=== PATIENT | male | born 1960 | race Caucasian/White ===

== ENCOUNTER 2016-07-29 11:55 | Observation (INO) | payer OTHER ==
[~2016-07-29] VITALS: Ht 172.7 cm; Wt 84.7 kg
[~2016-07-29 11:55] MED LIST: ACETAMINOPHEN325 M1 PO; AMBIEN10 MG PO; AUGMENTIN875 MG PO; Ambien PO; Ascorbic Acid,Ester- PO; Aspirin E.C. PO; Ativan PO; BACTRIM,SEPT1 TABLET PO; CARVEDILOL12.5 MG PO; CARVEDILOL25 MG PO; CARVEDILOL6.25 MG PO; CELEBREX200 MG PO; CELEXA10 MG PO; CELEXA20 MG PO; CENTRUM SILV1 TABLE1 PO; CEPHALEXIN250 MG/5 M PO; CLINDAMYCIN HC300 MG PO; CLONAZEPAM0.5 MG PO; COLACE100 MG PO; COREG PO; COREG3.125 M1 PO; COUMADIN1 MG PO; COUMADIN2 MG PO; COUMADIN3 MG PO; Coreg PO; DESYREL100 MG PO; ENDOCET 5-3251 EACH PO; ENTRESTO 24 MG1 EACH PO; FLOMAX0.4 MG PO; FUROSEMIDE20 MG PO; GABAPENTIN100 MG PO; GABAPENTIN300 MG PO; GABAPENTIN400 MG PO; K-DUR20 MEQ PO; K-Dur PO; KEFLEX250 MG/5 M PO; KEFLEX500 MG PO; KEPPRA500 MG PO; LASIX20 MG PO; LASIX40 MG PO; LEVOTHYROXINE PO; LEVOTHYROXINE150 MCG PO; LEVOTHYROXINE175 MCG PO; LEXAPRO20 MG PO; LIBRIUM25 MG PO; LISINOPRIL10 MG PO; LISINOPRIL5 MG PO; LORAZEPAM; LOVENOX80 MG/0.8 SC; Lasix PO; MIRALAX17 GM PO; Magnesium PO; Motrin PO; NAPROSYN500 MG PO; NARCAN4 MG NS; NEURONTIN600 MG PO; NITROSTAT,NITR0.4 M1 SL; OMEPRAZOLE40 M1 PO; OPANA ER20 MG PO; OXYCODONE HCL10 MG PO; OXYCODONE HCL30 MG PO; OXYCODONE HCL5 MG PO; OXYCONTIN80 MG PO; Omega III EPA + DHA PO; OxyCODONE PO; OxyCONTIN PO; PEN-VEE K,VEET500 MG PO; PERCOCET 5/31 TABLET PO; PREDNISONE20 MG PO; PRILOSEC40 MG PO; Pravachol PO; Pyridoxine,Vitamin B PO; SPIRONOLACTONE25 MG PO; SYNTHROID150 MCG PO; SYNTHROID200 MCG PO; SYNTHROID25 MCG PO; THERAGRAN1 TABLET PO; TRAZODONE HCL150 MG PO; Theragran PO; Thiamine,Vitamin B1 PO; ULTRA-LIGHT RO1 EACH MC; Ultram PO; VITAMIN B-1100 MG PO; VITAMIN D1000 INTUN PO; WARFARIN SODIUM1 MG PO; XANAX0.5 MG PO; ZESTRIL,PRINIVI10 MG PO; ZESTRIL2.5 MG PO; Zestril,Prinivil PO; oxyCODONE PO
[2016-07-29 13:41] LABS: HEMATOCRIT 28.8 % (38.0-50.0); MCH 28.8 PG (29.0-34.0); MCHC 31.9 G/DL (30.0-36.0); MCV 90.3 FL (86-99); MEAN PLAT.VOLUME 8.8 uM^3 (9.0-12.4); PLATELET COUNT 331 K/uL (156-360); RBC DIS.WIDTH-CV 14.8 % (11.8-14.6); RBC DIS.WIDTH-SD 47.2 % (39-53); RED BLOOD COUNT 3.19 M/uL (4.00-5.50); WHITE BLOOD COUNT 2.9 K/uL (4.1-10.2)
[2016-07-29 13:47] LABS: CHLORIDE 108 mEq/L (99-109); POTASSIUM 3.6 mEq/L (3.7-5.4); PTT 46.9 (25-32); SODIUM 139 mEq/L (136-147)
[2016-07-29 13:48] LABS: GLUCOSE 92 mg/dL (70-99)
[2016-07-29 13:50] LABS: ANION GAP 9 MEQ/L (2-14)
[2016-07-29 13:52] LABS: GFR ESTIMATE (CALCULATED) > 59 mL/min/
[2016-07-29 13:53] LABS: UREA NITROGEN (BUN) 9 mg/dL (9-23)
[2016-07-29 13:54] LABS: PROTHROMBIN TIME 160.7 (9.2-11.2)
[2016-07-29 14:07] LABS: INTER. NORMALIZED RATIO 14.5
[2016-07-29 15:09] LABS: ADD MIUA? YES; BILIRUBIN NEGATIVE; BLOOD SMALL; GLUCOSE (STRIP) NEGATIVE; KETONES NEGATIVE; LEUKOCYTES TRACE; NITRITE NEGATIVE; PH, URINE 6.5 (5-8); PROTEIN (STRIP) NEGATIVE; SPECIFIC GRAVITY 1.008 (1.000-1.030); UROBILINOGEN 0.2 MG/DL (0.2-1.0)
[2016-07-29 15:10] LABS: COLOR LT YELLOW ((YELLOW))
[2016-07-29 15:25] LABS: BACTERIA NONE SEEN; CASTS NONE SEEN /LPF; CRYSTALS NONE SEEN; EPITHELIAL CELLS RARE; MUCUS NONE SEEN; PATHOLOGICAL CAST NONE SEEN; SMALL ROUND CELL NONE SEEN; UCUL ADDED? NO; WHITE BLOOD CELLS 0-5 /HPF (0-5); YEAST-LIKE CELL NONE SEEN
[2016-07-29 15:41] LABS: MAGNESIUM 1.1 mg/dL (1.3-2.7)
[2016-07-29] MEDS ORDERED: COUMADIN5 MG PO (16:27)
[2016-07-29] MEDS ORDERED: CENTRUM MEN'S1 EACH PO (16:30)
[2016-07-29 17:35] VITALS: BP 154/91
[2016-07-29] MEDS ORDERED: OPANA ER20 MG PO (18:00)
[2016-07-29 19:55] LABS: PROTHROMBIN TIME 144.9 (9.2-11.2)
[2016-07-29 20:00] VITALS: BP 122/75
[2016-07-29 20:15] VITALS: BP 127/76
[2016-07-29 20:17] LABS: INTER. NORMALIZED RATIO 13.1
[2016-07-29 21:52] VITALS: BP 122/75
[2016-07-29 22:00] VITALS: BP 127/76
[2016-07-29 23:53] VITALS: BP 141/84
[2016-07-30 00:38] VITALS: BP 141/91
[2016-07-30 01:30] VITALS: BP 148/67
[2016-07-30 04:16] VITALS: BP 144/71
[2016-07-30 07:09] LABS: HEMATOCRIT 30.3 % (38.0-50.0); MCH 28.5 PG (29.0-34.0); MCHC 31.4 G/DL (30.0-36.0); PLATELET COUNT 249 K/uL (156-360); RBC DIS.WIDTH-CV 15.3 % (11.8-14.6); RBC DIS.WIDTH-SD 50.5 % (39-53); RED BLOOD COUNT 3.33 M/uL (4.00-5.50); WHITE BLOOD COUNT 2.6 K/uL (4.1-10.2)
[2016-07-30 07:30] LABS: INTER. NORMALIZED RATIO 2.3; PROTHROMBIN TIME 23.7 (9.2-11.2)
[2016-07-30 07:55] LABS: ANION GAP 9 MEQ/L (2-14); CHLORIDE 105 MEQ/L (99-109); POTASSIUM 3.9 MEQ/L (3.7-5.4); SAMPLE HEMOLYSIS CHECK 0; SAMPLE ICTERIC CHECK 0; SAMPLE LIPEMIA CHECK 0; SODIUM 142 MEQ/L (136-147)
[2016-07-30 08:00] LABS: GFR ESTIMATE (CALCULATED) > 59 mL/min/; GLUCOSE 84 mg/dL (70-99); UREA NITROGEN (BUN) 13 mg/dL (9-23)
[2016-07-30 08:29] VITALS: BP 129/76
[2016-07-30] MEDS ORDERED: COUMADIN1 MG PO ×2 (11:44→15:28)
[2016-07-30 13:01] VITALS: BP 121/68
== END 2016-07-30 12:30 | disposition home or self-care (01) ==
LOC: EME → EDBD 11:55 → EDOF 14:35 → 5WEST 14:35
PROVIDERS: Emergency Medicine; Nurse Practitioner Adult Health
DX: R79.1 Abnormal coagulation profile (principal); I82.532 Chronic embolism and thrombosis of left popliteal vein; I82.592 Chronic embolism and thrombosis of other specified deep vein of left lower extremity; Z79.01 Long term (current) use of anticoagulants; F10.20 Alcohol dependence, uncomplicated; I50.20 Unspecified systolic (congestive) heart failure; Z95.810 Presence of automatic (implantable) cardiac defibrillator; I25.10 Atherosclerotic heart disease of native coronary artery without angina pectoris; I42.9 Cardiomyopathy, unspecified; E03.9 Hypothyroidism, unspecified; E78.5 Hyperlipidemia, unspecified; Z86.711 Personal history of pulmonary embolism; Z87.898 Personal history of other specified conditions; Z86.69 Personal history of other diseases of the nervous system and sense organs; Z95.828 Presence of other vascular implants and grafts
CPT/HCPCS: 80048; 81003; 83735; 85027; 85610; 85730; 86850; 86900; 86901; 93971; 99281; 99284; G0378; P9017

== ENCOUNTER 2016-10-29 10:32 | Inpatient (IN) | payer OTHER ==
[~2016-10-29] VITALS: Ht 170.2 cm; Wt 90.1 kg
[~2016-10-29 10:32] MED LIST changes: +CENTRUM MEN'S1 EACH PO; +COUMADIN5 MG PO
[2016-10-29 11:36] LABS: EOSINOPHIL (%) 0 % (0-5); HEMATOCRIT 40.1 % (38.0-50.0); IMMATURE GRANULOCYTE (%) 0.6 % (0.0-0.7); INSTRUMENT ABS NEUTROPHIL CT 3.3 K/uL; LYMPHOCYTE COUNT 1.3 K/uL (1.0-2.8); MCH 27.9 PG (29.0-34.0); MCHC 32.7 G/DL (30.0-36.0); MCV 85.3 FL (86-99); MEAN PLAT.VOLUME 9.2 uM^3 (9.0-12.4); MONOCYTE (%) 8.1 % (3-12); MONOCYTE COUNT 0.4 K/uL (0-0.8); NEUTROPHIL (%) 64.7 % (45-76); NEUTROPHIL COUNT 3.3 K/uL (1.8-6.4); PLATELET COUNT 183 K/uL (156-360); RBC DIS.WIDTH-CV 16.7 % (11.8-14.6); RBC DIS.WIDTH-SD 51.3 % (39-53); WHITE BLOOD COUNT 5.1 K/uL (4.1-10.2)
[2016-10-29] MEDS ORDERED: OPANA ER15 MG PO (11:48)
[2016-10-29] MEDS ORDERED: OXYCODONE HCL10 MG PO (11:49)
[2016-10-29 11:50] LABS: CHLORIDE 105 mEq/L (99-109); POTASSIUM 3.3 mEq/L (3.7-5.4); SODIUM 139 mEq/L (136-147)
[2016-10-29] MEDS ORDERED: XARELTO20 MG PO (11:50)
[2016-10-29] MEDS ORDERED: AMBIEN5 MG PO (11:50)
[2016-10-29] MEDS ORDERED: FUROSEMIDE20 MG PO (11:50)
[2016-10-29 11:51] LABS: GLUCOSE 139 mg/dL (70-99)
[2016-10-29 11:53] LABS: ANION GAP 11 MEQ/L (2-14)
[2016-10-29 11:55] LABS: GFR ESTIMATE (CALCULATED) > 59 mL/min/
[2016-10-29 11:56] LABS: UREA NITROGEN (BUN) 10 mg/dL (9-23)
[2016-10-29 18:34] VITALS: BP 167/101
[2016-10-29 20:05] VITALS: BP 138/88
[2016-10-29 22:43] VITALS: BP 119/83
[2016-10-30 03:44] VITALS: BP 129/84
[2016-10-30 06:44] LABS: EOSINOPHIL (%) 0 % (0-5); HEMATOCRIT 37.5 % (38.0-50.0); IMMATURE GRANULOCYTE (%) 0.6 % (0.0-0.7); INSTRUMENT ABS NEUTROPHIL CT 1.8 K/uL; LYMPHOCYTE COUNT 1.4 K/uL (1.0-2.8); MCH 28.1 PG (29.0-34.0); MCHC 32.3 G/DL (30.0-36.0); MCV 87.2 FL (86-99); MEAN PLAT.VOLUME 8.9 uM^3 (9.0-12.4); MONOCYTE (%) 9.8 % (3-12); MONOCYTE COUNT 0.4 K/uL (0-0.8); NEUTROPHIL (%) 50.9 % (45-76); NEUTROPHIL COUNT 1.8 K/uL (1.8-6.4); PLATELET COUNT 157 K/uL (156-360); RBC DIS.WIDTH-SD 53.4 % (39-53); WHITE BLOOD COUNT 3.6 K/uL (4.1-10.2)
[2016-10-30 06:55] VITALS: BP 136/87
[2016-10-30 07:10] LABS: ANION GAP 10 MEQ/L (2-14); CHLORIDE 103 MEQ/L (99-109); GFR ESTIMATE (CALCULATED) > 59 mL/min/; GLUCOSE 88 mg/dL (70-99); POTASSIUM 3.6 MEQ/L (3.7-5.4); SAMPLE HEMOLYSIS CHECK 0; SAMPLE ICTERIC CHECK 0; SAMPLE LIPEMIA CHECK 0; SODIUM 141 MEQ/L (136-147); UREA NITROGEN (BUN) 10 mg/dL (9-23)
[2016-10-30 08:26] LABS: C-REACTIVE PROTEIN 8.2 MG/L (0-10)
[2016-10-30 16:02] VITALS: BP 129/94
[2016-10-30 19:03] VITALS: BP 112/79
[2016-10-30 23:03] VITALS: BP 114/75
[2016-10-31 03:16] VITALS: BP 124/93
[2016-10-31 06:34] LABS: EOSINOPHIL (%) 0 % (0-5); HEMATOCRIT 38.3 % (38.0-50.0); IMMATURE GRANULOCYTE (%) 0.5 % (0.0-0.7); INSTRUMENT ABS NEUTROPHIL CT 2.2 K/uL; LYMPHOCYTE COUNT 1.7 K/uL (1.0-2.8); MCHC 31.9 G/DL (30.0-36.0); MCV 87.8 FL (86-99); MONOCYTE (%) 8.8 % (3-12); MONOCYTE COUNT 0.4 K/uL (0-0.8); NEUTROPHIL (%) 50.7 % (45-76); NEUTROPHIL COUNT 2.2 K/uL (1.8-6.4); PLATELET COUNT 179 K/uL (156-360); RBC DIS.WIDTH-CV 17.4 % (11.8-14.6); RBC DIS.WIDTH-SD 54.6 % (39-53); RED BLOOD COUNT 4.36 M/uL (4.00-5.50); WHITE BLOOD COUNT 4.3 K/uL (4.1-10.2)
[2016-10-31 07:07] LABS: ANION GAP 9 MEQ/L (2-14); CHLORIDE 101 MEQ/L (99-109); GFR ESTIMATE (CALCULATED) > 59 mL/min/; GLUCOSE 95 mg/dL (70-99); POTASSIUM 3.7 MEQ/L (3.7-5.4); SAMPLE HEMOLYSIS CHECK 0; SAMPLE ICTERIC CHECK 0; SAMPLE LIPEMIA CHECK 0; SODIUM 138 MEQ/L (136-147); UREA NITROGEN (BUN) 9 mg/dL (9-23)
[2016-10-31 07:09] VITALS: BP 135/83
[2016-10-31 07:11] LABS: MAGNESIUM 0.7 mg/dl (1.3-2.7)
[2016-10-31 10:10] VITALS: BP 112/75
[2016-10-31 15:28] VITALS: BP 135/70
[2016-10-31 18:55] VITALS: BP 119/77
[2016-10-31 23:00] VITALS: BP 123/76
[2016-11-01 04:46] VITALS: BP 121/78
[2016-11-01 06:52] LABS: EOSINOPHIL (%) 0.3 % (0-5); HEMATOCRIT 36.9 % (38.0-50.0); IMMATURE GRANULOCYTE (%) 0.3 % (0.0-0.7); LYMPHOCYTE COUNT 1.6 K/uL (1.0-2.8); MCH 28.1 PG (29.0-34.0); MCHC 30.9 G/DL (30.0-36.0); MCV 91.1 FL (86-99); MEAN PLAT.VOLUME 9.6 uM^3 (9.0-12.4); MONOCYTE (%) 9.9 % (3-12); MONOCYTE COUNT 0.4 K/uL (0-0.8); NEUTROPHIL (%) 49.4 % (45-76); PLATELET COUNT 172 K/uL (156-360); RBC DIS.WIDTH-CV 17.8 % (11.8-14.6); RBC DIS.WIDTH-SD 58.6 % (39-53); RED BLOOD COUNT 4.05 M/uL (4.00-5.50); WHITE BLOOD COUNT 3.9 K/uL (4.1-10.2)
[2016-11-01 07:22] LABS: ANION GAP 8 MEQ/L (2-14); CHLORIDE 107 MEQ/L (99-109); GFR ESTIMATE (CALCULATED) > 59 mL/min/; GLUCOSE 83 mg/dL (70-99); SAMPLE HEMOLYSIS CHECK 0; SAMPLE ICTERIC CHECK 0; SAMPLE LIPEMIA CHECK 0; SODIUM 139 MEQ/L (136-147); UREA NITROGEN (BUN) 10 mg/dL (9-23)
[2016-11-01 07:31] VITALS: BP 137/85
[2016-11-01 07:35] LABS: MAGNESIUM 1.6 mg/dl (1.3-2.7); POTASSIUM 4.5 MEQ/L (3.7-5.4)
[2016-11-01 11:40] VITALS: BP 117/79
[2016-11-01 16:00] VITALS: BP 134/91
[2016-11-01 19:06] VITALS: BP 130/84
[2016-11-01 22:35] VITALS: BP 121/75
[2016-11-02 06:38] LABS: EOSINOPHIL (%) 0 % (0-5); HEMATOCRIT 35.1 % (38.0-50.0); IMMATURE GRANULOCYTE (%) 0.4 % (0.0-0.7); LYMPHOCYTE COUNT 1.3 K/uL (1.0-2.8); MCHC 31.1 G/DL (30.0-36.0); MCV 90.2 FL (86-99); MEAN PLAT.VOLUME 9.3 uM^3 (9.0-12.4); MONOCYTE (%) 13.4 % (3-12); MONOCYTE COUNT 0.4 K/uL (0-0.8); NEUTROPHIL (%) 37.5 % (45-76); PLATELET COUNT 174 K/uL (156-360); RBC DIS.WIDTH-CV 17.4 % (11.8-14.6); RBC DIS.WIDTH-SD 56.8 % (39-53); RED BLOOD COUNT 3.89 M/uL (4.00-5.50)
[2016-11-02 06:41] LABS: WHITE BLOOD COUNT 2.6 K/uL (4.1-10.2)
[2016-11-02 06:48] LABS: ANION GAP 8 MEQ/L (2-14); CHLORIDE 104 MEQ/L (99-109); GFR ESTIMATE (CALCULATED) > 59 mL/min/; GLUCOSE 89 mg/dL (70-99); MAGNESIUM 1.6 mg/dl (1.3-2.7); POTASSIUM 4.3 MEQ/L (3.7-5.4); SAMPLE HEMOLYSIS CHECK 0; SAMPLE ICTERIC CHECK 0; SAMPLE LIPEMIA CHECK 0; SODIUM 139 MEQ/L (136-147); UREA NITROGEN (BUN) 9 mg/dL (9-23)
[2016-11-02 07:34] VITALS: BP 114/78
[2016-11-02 11:15] VITALS: BP 115/81
[2016-11-02] MEDS ORDERED: BACTRIM,SEPT1 TABLET PO (14:04)
[2016-11-02] MEDS ORDERED: KEFLEX500 MG PO (14:05)
[2016-11-02 15:26] VITALS: BP 126/70
== END 2016-11-02 17:06 | disposition home or self-care (01) | DRG 603 ==
LOC: EME 10:32 → EDOF 13:57 → 5EAST 13:57
PROVIDERS: Internal Medicine; Nurse Practitioner Adult Health; Physician Assistant
DX: L03.116 Cellulitis of left lower limb (principal); I42.9 Cardiomyopathy, unspecified; G62.1 Alcoholic polyneuropathy; I48.91 Unspecified atrial fibrillation; F32.9 Major depressive disorder, single episode, unspecified; I10 Essential (primary) hypertension; E83.42 Hypomagnesemia; F41.9 Anxiety disorder, unspecified; F10.20 Alcohol dependence, uncomplicated; E03.9 Hypothyroidism, unspecified; E78.5 Hyperlipidemia, unspecified; F19.10 Other psychoactive substance abuse, uncomplicated; L97.522 Non-pressure chronic ulcer of other part of left foot with fat layer exposed; Z86.711 Personal history of pulmonary embolism; Z95.810 Presence of automatic (implantable) cardiac defibrillator
CPT/HCPCS: 73630; 73701; 80048; 80202; 83605; 83735; 85025; 85651; 86140; 87040; 87070; 87075; 87205; 93926; 93971; 99281; 99285; J0690; J1170; J2270; J2543; J3370; J3475; J7050

== ENCOUNTER 2016-12-13 12:50 | Inpatient (IN) | payer OTHER ==
[~2016-12-13] VITALS: Ht 172.7 cm; Wt 89.9 kg
[~2016-12-13 12:50] MED LIST changes: +AMBIEN5 MG PO; +OPANA ER15 MG PO; +XARELTO20 MG PO
[2016-12-13 13:49] LABS: EOSINOPHIL (%) 0.3 % (0-5); HEMATOCRIT 35.3 % (38.0-50.0); IMMATURE GRANULOCYTE (%) 0.4 % (0.0-0.7); INSTRUMENT ABS NEUTROPHIL CT 5.3 K/uL; LYMPHOCYTE COUNT 0.8 K/uL (1.0-2.8); MCH 28.9 PG (29.0-34.0); MCV 90.3 FL (86-99); MEAN PLAT.VOLUME 9.1 uM^3 (9.0-12.4); MONOCYTE COUNT 0.6 K/uL (0-0.8); NEUTROPHIL (%) 77.9 % (45-76); NEUTROPHIL COUNT 5.3 K/uL (1.8-6.4); RBC DIS.WIDTH-CV 15.4 % (11.8-14.6); RBC DIS.WIDTH-SD 51.4 % (39-53); RED BLOOD COUNT 3.91 M/uL (4.00-5.50)
[2016-12-13 13:51] LABS: PLATELET COUNT 151 K/uL (156-360); WHITE BLOOD COUNT 6.8 K/uL (4.1-10.2)
[2016-12-13 14:01] LABS: INTER. NORMALIZED RATIO 2.3; PROTHROMBIN TIME 23.8 (9.2-11.2); PTT 37.3 (25-32)
[2016-12-13 14:10] LABS: TROP-I INTERPRETATION NEGATIVE; TROPONIN-I 0.03 ng/mL (0.0-0.30)
[2016-12-13 14:10] LABS: POINT-OF-CARE METER ID UU13113702
[2016-12-13 14:18] LABS: CHLORIDE 100 mEq/L (99-109); POTASSIUM 3.9 mEq/L (3.7-5.4); SODIUM 136 mEq/L (136-147)
[2016-12-13 14:19] LABS: GLUCOSE 112 mg/dL (70-99)
[2016-12-13 14:21] LABS: ANION GAP 14 MEQ/L (2-14)
[2016-12-13 14:23] LABS: GFR ESTIMATE (CALCULATED) 26 mL/min/
[2016-12-13 14:24] LABS: UREA NITROGEN (BUN) 24 mg/dL (9-23)
[2016-12-13 16:50] LABS: ADD MIUA? YES; BILIRUBIN NEGATIVE; BLOOD LARGE; COLOR YELLOW ((YELLOW)); GLUCOSE (STRIP) 50; KETONES NEGATIVE; LEUKOCYTES NEGATIVE; NITRITE NEGATIVE; PROTEIN (STRIP) 100; SPECIFIC GRAVITY 1.023 (1.000-1.030); UROBILINOGEN 0.2 MG/DL (0.2-1.0)
[2016-12-13 16:53] LABS: BACTERIA NONE SEEN /HPF; EPITHELIAL CELLS NONE SEEN /HPF; MUCUS TRACE /LPF; RED BLOOD CELLS 0-5 /HPF (0-5); WHITE BLOOD CELLS 0-5 /HPF (0-5)
[2016-12-13] MEDS ORDERED: SYNTHROID25 MCG PO (16:56)
[2016-12-13] MEDS ORDERED: OPANA ER20 MG PO (16:57)
[2016-12-13] MEDS ORDERED: OXYCODONE HCL20 M1 PO (16:57)
[2016-12-13] MEDS ORDERED: AMBIEN10 MG PO (16:58)
[2016-12-13] MEDS ORDERED: EFFEXOR75 MG PO (17:00)
[2016-12-13] MEDS ORDERED: ROXICODONE15 MG PO (17:01)
[2016-12-13] MEDS ORDERED: ALDACTONE25 MG PO (17:02)
[2016-12-13 17:12] LABS: AMPHETAMINE NEGATIVE (500 ng/mL); BARBITURATES NEGATIVE (200 ng/mL); BENZODIAZEPINES NEGATIVE (150 ng/mL); COCAINE NEGATIVE (150 ng/mL); INTERNAL CONTROLS VALID? YES; METHADONE NEGATIVE (200 ng/mL); METHAMPHETAMINE NEGATIVE (500 ng/mL); OPIATES (MORPHINE) PRESUMPTIVE POSITIVE (100 ng/mL); OXYCODONE PRESUMPTIVE POSITIVE (100 ng/mL); PHENCYCLIDINE NEGATIVE (25 ng/mL); PROPOXYPHENE NEGATIVE (300 ng/mL); THC CANNABINOIDS NEGATIVE (50 ng/mL); TRICYCLIC ANTIDEPRESSANTS NEGATIVE (300 ng/mL)
[2016-12-13 17:13] LABS: ADD MEDTOX COMMENT Y
[2016-12-13 20:09] LABS: MAGNESIUM 1.5 mg/dL (1.3-2.7)
[2016-12-13 20:13] LABS: SERUM ETHYL ALCOHOL < 10 mg/dL
[2016-12-13 20:38] LABS: TROP-I INTERPRETATION NEGATIVE; TROPONIN-I 0.03 ng/mL (0.0-0.30)
[2016-12-13 21:08] VITALS: BP 117/72
[2016-12-14 00:02] VITALS: BP 97/56
[2016-12-14 06:42] LABS: HEMATOCRIT 31.8 % (38.0-50.0); MCH 30.1 PG (29.0-34.0); MCHC 32.7 G/DL (30.0-36.0); MCV 92.2 FL (86-99); MEAN PLAT.VOLUME 9.5 uM^3 (9.0-12.4); PLATELET COUNT 126 K/uL (156-360); RBC DIS.WIDTH-CV 15.4 % (11.8-14.6); RBC DIS.WIDTH-SD 51.6 % (39-53); RED BLOOD COUNT 3.45 M/uL (4.00-5.50)
[2016-12-14 06:45] LABS: WHITE BLOOD COUNT 4.2 K/uL (4.1-10.2)
[2016-12-14 07:54] LABS: ANION GAP 7 MEQ/L (2-14); CHLORIDE 102 MEQ/L (99-109); GFR ESTIMATE (CALCULATED) 51 mL/min/; GLUCOSE 128 mg/dL (70-99); POTASSIUM 3.6 MEQ/L (3.7-5.4); SAMPLE HEMOLYSIS CHECK 0; SAMPLE ICTERIC CHECK 0; SAMPLE LIPEMIA CHECK 0; SODIUM 137 MEQ/L (136-147); UREA NITROGEN (BUN) 22 mg/dL (9-23)
[2016-12-14 08:02] VITALS: BP 123/68
[2016-12-14 15:57] VITALS: BP 114/80
[2016-12-14 22:08] LABS: TROP-I INTERPRETATION NEGATIVE; TROPONIN-I 0.01 ng/mL (0.0-0.30)
[2016-12-15] VITALS: BP 110/75
[2016-12-15 07:24] VITALS: BP 123/66
[2016-12-15 09:10] LABS: ANION GAP 11 MEQ/L (2-14); CHLORIDE 98 MEQ/L (99-109); GFR ESTIMATE (CALCULATED) > 59 mL/min/; GLUCOSE 108 mg/dL (70-99); MAGNESIUM 1.3 mg/dl (1.3-2.7); SAMPLE HEMOLYSIS CHECK 0; SAMPLE ICTERIC CHECK 0; SAMPLE LIPEMIA CHECK 0; SODIUM 134 MEQ/L (136-147); UREA NITROGEN (BUN) 22 mg/dL (9-23)
[2016-12-15] MEDS ORDERED: LEVOXYL200 MCG PO (09:18)
[2016-12-15] MEDS ORDERED: LEVO-T25 MCG PO (09:19)
[2016-12-15] MEDS ORDERED: DOXYCYCLINE HY100 M3 PO (13:11)
== END 2016-12-15 13:42 | disposition home or self-care (01) | DRG 638 ==
LOC: EME 12:50 → EDOF 18:27 → 5SOUTH 18:27
PROVIDERS: Emergency Medicine; Hospitalist; Internal Medicine
DX: E11.69 Type 2 diabetes mellitus with other specified complication (principal); N17.9 Acute kidney failure, unspecified; I95.89 Other hypotension; I42.0 Dilated cardiomyopathy; E11.621 Type 2 diabetes mellitus with foot ulcer; E87.1 Hypo-osmolality and hyponatremia; I11.0 Hypertensive heart disease with heart failure; I50.22 Chronic systolic (congestive) heart failure; I10 Essential (primary) hypertension; I48.0 Paroxysmal atrial fibrillation; E86.0 Dehydration; R07.89 Other chest pain; L03.032 Cellulitis of left toe; L97.524 Non-pressure chronic ulcer of other part of left foot with necrosis of bone; Z86.711 Personal history of pulmonary embolism; Z86.718 Personal history of other venous thrombosis and embolism; E03.9 Hypothyroidism, unspecified; L03.116 Cellulitis of left lower limb; F19.10 Other psychoactive substance abuse, uncomplicated; I25.10 Atherosclerotic heart disease of native coronary artery without angina pectoris; R00.0 Tachycardia, unspecified; G89.4 Chronic pain syndrome; Z95.810 Presence of automatic (implantable) cardiac defibrillator; Z95.5 Presence of coronary angioplasty implant and graft; R42 Dizziness and giddiness; I44.7 Left bundle-branch block, unspecified; M19.90 Unspecified osteoarthritis, unspecified site; E87.6 Hypokalemia; T50.2X5A Adverse effect of carbonic-anhydrase inhibitors, benzothiadiazides and other diuretics, initial encounter; F41.9 Anxiety disorder, unspecified; F32.9 Major depressive disorder, single episode, unspecified; Z95.828 Presence of other vascular implants and grafts; Z91.14 Patient's other noncompliance with medication regimen
CPT/HCPCS: 71010; 71250; 73700; 80048; 81003; 82948; 83735; 83880; 84484; 84999; 85025; 85027; 85610; 85730; 87070; 87075; 87077; 87147; 87186; 87205; 93005; 93970; 94799; 99281; 99285; G0480; J2310; J7030; J7040

== ENCOUNTER 2016-12-17 12:54 | Emergency (ER) | payer OTHER ==
[~2016-12-17 12:54] MED LIST changes: +ALDACTONE25 MG PO; +DOXYCYCLINE HY100 M3 PO; +EFFEXOR75 MG PO; +LEVO-T25 MCG PO; +LEVOXYL200 MCG PO; +OXYCODONE HCL20 M1 PO; +ROXICODONE15 MG PO
== END 2016-12-17 13:11 | disposition left against medical advice (07) ==
LOC: EME 12:54
DX: F19.10 Other psychoactive substance abuse, uncomplicated (principal); R41.82 Altered mental status, unspecified
CPT/HCPCS: 99281; 99283

== ENCOUNTER → 2016-12-20 | Outpatient (CLI) | payer OTHER | END | disposition home or self-care (01) | LOC: PICC 12-17 07:51 | DX: M86.072 Acute hematogenous osteomyelitis, left ankle and foot (principal); L97.523 Non-pressure chronic ulcer of other part of left foot with necrosis of muscle; Z88.8 Allergy status to other drugs, medicaments and biological substances | CPT/HCPCS: 76937 ==

== ENCOUNTER 2017-02-26 20:11 | Emergency (ER) | payer OTHER ==
[~2017-02-26] VITALS: Ht 172.7 cm; Wt 90.2 kg
[2017-02-26 20:19] VITALS: BP 123/83
== END 2017-02-26 20:22 | disposition left against medical advice (07) ==
LOC: EME → EDBD 20:11 → EME 20:11
DX: R41.82 Altered mental status, unspecified (principal); Z53.21 Procedure and treatment not carried out due to patient leaving prior to being seen by health care provider
CPT/HCPCS: 80048; 84484; 85027; 93005; J2310

== ENCOUNTER 2017-03-31 16:19 | Emergency (ER) | payer OTHER ==
[~2017-03-31] VITALS: Ht 165.1 cm; Wt 91.3 kg
[2017-03-31 18:39] VITALS: BP 141/89
== END 2017-03-31 19:52 | disposition home or self-care (01) ==
LOC: EME 16:19
DX: F10.129 Alcohol abuse with intoxication, unspecified (principal); S00.81XA Abrasion of other part of head, initial encounter; W18.30XA Fall on same level, unspecified, initial encounter; I44.7 Left bundle-branch block, unspecified; E03.9 Hypothyroidism, unspecified; I12.9 Hypertensive chronic kidney disease with stage 1 through stage 4 chronic kidney disease, or unspecified chronic kidney disease; N18.9 Chronic kidney disease, unspecified; Z95.0 Presence of cardiac pacemaker; Z79.01 Long term (current) use of anticoagulants; Z79.891 Long term (current) use of opiate analgesic
CPT/HCPCS: 70450; 93005; 99281; 99283

== ENCOUNTER 2017-04-01 12:53 | Emergency (ER) | payer OTHER ==
[~2017-04-01] VITALS: Ht 172.7 cm; Wt 79.5 kg
[2017-04-01 15:44] LABS: EOSINOPHIL (%) 0.8 % (0-5); HEMATOCRIT 42.2 % (38.0-50.0); IMMATURE GRANULOCYTE (%) 0.3 % (0.0-0.7); LYMPHOCYTE COUNT 1.3 K/uL (1.0-2.8); MCH 27.1 PG (29.0-34.0); MCHC 32.9 G/DL (30.0-36.0); MCV 82.3 FL (86-99); MEAN PLAT.VOLUME 9.5 uM^3 (9.0-12.4); MONOCYTE COUNT 0.3 K/uL (0-0.8); NEUTROPHIL (%) 54.4 % (45-76); PLATELET COUNT 207 K/uL (156-360); RBC DIS.WIDTH-CV 17.5 % (11.8-14.6); RBC DIS.WIDTH-SD 51.9 % (39-53); RED BLOOD COUNT 5.13 M/uL (4.00-5.50); WHITE BLOOD COUNT 3.6 K/uL (4.1-10.2)
[2017-04-01 15:50] LABS: CHLORIDE 108 mEq/L (99-109); POTASSIUM 2.9 mEq/L (3.7-5.4); SODIUM 146 mEq/L (136-147)
[2017-04-01 15:52] LABS: GLUCOSE 84 mg/dL (70-99)
[2017-04-01 15:54] LABS: ANION GAP 19 MEQ/L (2-14)
[2017-04-01 15:55] LABS: SERUM ETHYL ALCOHOL 171 mg/dL
[2017-04-01 15:56] LABS: GFR ESTIMATE (CALCULATED) > 59 mL/min/
[2017-04-01 15:58] LABS: UREA NITROGEN (BUN) 10 mg/dL (9-23)
[2017-04-01 15:59] LABS: SALICYLATE < 5.0 MG/DL (15-30)
[2017-04-01 19:54] VITALS: BP 112/82
== END 2017-04-01 19:58 | disposition home or self-care (01) ==
LOC: EME 12:53
PROVIDERS: Emergency Medicine
PROC: 0XQ4XZZ Repair Right Axilla, External Approach (ICD-10-PCS; principal; 2017-04-01)
DX: S41.111A Laceration without foreign body of right upper arm, initial encounter (principal); F10.24 Alcohol dependence with alcohol-induced mood disorder; F32.9 Major depressive disorder, single episode, unspecified; R45.851 Suicidal ideations; I10 Essential (primary) hypertension; Z87.442 Personal history of urinary calculi; I25.10 Atherosclerotic heart disease of native coronary artery without angina pectoris; E03.9 Hypothyroidism, unspecified; I48.91 Unspecified atrial fibrillation; Z96.612 Presence of left artificial shoulder joint; Z95.0 Presence of cardiac pacemaker
CPT/HCPCS: 80048; 85025; 90839; 99281; 99285; G0480; J1630; J2060

== ENCOUNTER 2017-04-21 13:42 | Emergency (ER) | payer OTHER ==
[~2017-04-21] VITALS: Ht 167.6 cm; Wt 87.3 kg
[2017-04-21 15:20] LABS: HEMATOCRIT 38.2 % (38.0-50.0); MCH 27.2 PG (29.0-34.0); MCHC 31.9 G/DL (30.0-36.0); MCV 85.1 FL (86-99); MEAN PLAT.VOLUME 9.4 uM^3 (9.0-12.4); PLATELET COUNT 247 K/uL (156-360); RBC DIS.WIDTH-CV 18.6 % (11.8-14.6); RBC DIS.WIDTH-SD 58.3 % (39-53); RED BLOOD COUNT 4.49 M/uL (4.00-5.50); WHITE BLOOD COUNT 2.4 K/uL (4.1-10.2)
[2017-04-21 15:25] LABS: INTER. NORMALIZED RATIO 1.5
[2017-04-21 15:28] LABS: CHLORIDE 107 mEq/L (99-109); POTASSIUM 3.8 mEq/L (3.7-5.4); SODIUM 141 mEq/L (136-147)
[2017-04-21 15:30] LABS: GLUCOSE 79 mg/dL (70-99)
[2017-04-21 15:31] LABS: ANION GAP 9 MEQ/L (2-14)
[2017-04-21 15:32] LABS: TOTAL BILIRUBIN 0.5 mg/dL (0.0-1.0)
[2017-04-21 15:33] LABS: SERUM ETHYL ALCOHOL 86 mg/dL
[2017-04-21 15:34] LABS: ALKALINE PHOSPHATASE 74 IU/L (3-129); GFR ESTIMATE (CALCULATED) > 59 mL/min/
[2017-04-21 15:35] LABS: UREA NITROGEN (BUN) 9 mg/dL (9-23)
[2017-04-21 15:44] LABS: ADD MIUA? NO; BILIRUBIN NEGATIVE; BLOOD NEGATIVE; COLOR YELLOW ((YELLOW)); GLUCOSE (STRIP) NEGATIVE; KETONES NEGATIVE; LEUKOCYTES NEGATIVE; NITRITE NEGATIVE; PROTEIN (STRIP) NEGATIVE; SPECIFIC GRAVITY 1.013 (1.000-1.030); UROBILINOGEN 0.2 MG/DL (0.2-1.0)
[2017-04-21 16:16] LABS: AMPHETAMINE NEGATIVE (500 ng/mL); BARBITURATES NEGATIVE (200 ng/mL); BENZODIAZEPINES PRESUMPTIVE POSITIVE (150 ng/mL); COCAINE PRESUMPTIVE POSITIVE (150 ng/mL); METHADONE NEGATIVE (200 ng/mL); METHAMPHETAMINE NEGATIVE (500 ng/mL); OPIATES (MORPHINE) PRESUMPTIVE POSITIVE (100 ng/mL); OXYCODONE NEGATIVE (100 ng/mL); PHENCYCLIDINE NEGATIVE (25 ng/mL); PROPOXYPHENE NEGATIVE (300 ng/mL); THC CANNABINOIDS NEGATIVE (50 ng/mL); TRICYCLIC ANTIDEPRESSANTS NEGATIVE (300 ng/mL)
[2017-04-21 16:17] LABS: ADD MEDTOX COMMENT Y; INTERNAL CONTROLS VALID? YES
[2017-04-21 16:36] LABS: BENZODIAZEPINES, URINE SCREEN POSITIVE (200 ng/mL)
[2017-04-21] MEDS ORDERED: NARCAN4 MG NS (16:37)
[2017-04-21 16:51] VITALS: BP 137/82
== END 2017-04-21 17:01 | disposition home or self-care (01) ==
LOC: EME 13:42
PROVIDERS: Emergency Medicine
DX: F11.20 Opioid dependence, uncomplicated (principal); F14.20 Cocaine dependence, uncomplicated; F13.20 Sedative, hypnotic or anxiolytic dependence, uncomplicated; F10.10 Alcohol abuse, uncomplicated; F10.24 Alcohol dependence with alcohol-induced mood disorder; R41.0 Disorientation, unspecified; I10 Essential (primary) hypertension; R56.9 Unspecified convulsions; I25.10 Atherosclerotic heart disease of native coronary artery without angina pectoris; E03.9 Hypothyroidism, unspecified; Z95.0 Presence of cardiac pacemaker; Z87.820 Personal history of traumatic brain injury; Z96.612 Presence of left artificial shoulder joint; Z88.8 Allergy status to other drugs, medicaments and biological substances; Z87.442 Personal history of urinary calculi; Z86.73 Personal history of transient ischemic attack (TIA), and cerebral infarction without residual deficits
CPT/HCPCS: 70450; 80053; 81003; 82140; 84999; 85027; 85610; 90839; 99281; 99285; G0480; J7030

== ENCOUNTER 2017-05-04 20:37 | Inpatient (IN) | payer OTHER ==
[~2017-05-04] VITALS: Ht 172.7 cm; Wt 90.6 kg
[2017-05-04 20:55] LABS: BASE EXCESS -7.6 mEq/L (-3 to +3); CARBOXY HGB 1.6 % (0-5); COMMENTS - BLOOD GASES C+; DEVICE NRB MASK; FI02 100 %; METHEMOGLOBIN 0 % (0-1.5); O2 FLOW 15 L/MIN; PCO2 55 mm Hg (35-45); PO2 52 mm Hg (80-100); SITE RR; pH 7.19 (7.35-7.45)
[2017-05-04 21:32] LABS: HEMATOCRIT 38.5 % (38.0-50.0); MCH 27.7 PG (29.0-34.0); MCHC 31.7 G/DL (30.0-36.0); MCV 87.5 FL (86-99); MEAN PLAT.VOLUME 9.8 uM^3 (9.0-12.4); PLATELET COUNT 207 K/uL (156-360); RBC DIS.WIDTH-CV 17.3 % (11.8-14.6); RBC DIS.WIDTH-SD 56.1 % (39-53); WHITE BLOOD COUNT 9.4 K/uL (4.1-10.2)
[2017-05-04 21:45] LABS: CHLORIDE 103 mEq/L (99-109); POTASSIUM 3.9 mEq/L (3.7-5.4); SODIUM 141 mEq/L (136-147)
[2017-05-04 21:47] LABS: GLUCOSE 66 mg/dL (70-99)
[2017-05-04 21:48] LABS: ANION GAP 16 MEQ/L (2-14)
[2017-05-04 21:49] LABS: TOTAL BILIRUBIN 0.6 mg/dL (0.0-1.0)
[2017-05-04 21:50] LABS: ALKALINE PHOSPHATASE 90 IU/L (3-129); SERUM ETHYL ALCOHOL < 10 mg/dL
[2017-05-04 21:51] LABS: GFR ESTIMATE (CALCULATED) 30 mL/min/
[2017-05-04 21:52] LABS: UREA NITROGEN (BUN) 19 mg/dL (9-23)
[2017-05-04 21:54] LABS: TROP-I INTERPRETATION NEGATIVE; TROPONIN-I 0.03 ng/mL (0.0-0.30)
[2017-05-04 23:17] LABS: POINT-OF-CARE METER ID UU13113702
[2017-05-05] VITALS (7 sets, daily range): BP systolic 107–124; BP diastolic 59–79
[2017-05-05] MEDS ORDERED: XARELTO10 MG PO (03:47)
[2017-05-05] MEDS ORDERED: LEVO-T25 MCG PO (03:48)
[2017-05-05] MEDS ORDERED: COREG3.125 M1 PO (03:49)
[2017-05-05] MEDS ORDERED: CARVEDILOL3.125 MG PO (03:50)
[2017-05-05] MEDS ORDERED: GABAPENTIN100 MG PO (03:51)
[2017-05-05] MEDS ORDERED: TRAMADOL HCL50 MG PO (03:53)
[2017-05-05 05:45] LABS: TROP-I INTERPRETATION NEGATIVE; TROPONIN-I 0.14 ng/mL (0.0-0.30)
[2017-05-05 05:58] LABS: BASE EXCESS 0.4 mEq/L (-3 to +3); BICARBONATE 27.6 mEq/L (22-26); CARBOXY HGB 0 % (0-5); COMMENTS - BLOOD GASES C+; DEVICE NCHH; FI02 100 %; METHEMOGLOBIN 0.3 % (0-1.5); O2 FLOW 35 L/MIN; PCO2 56 mm Hg (35-45); PO2 181 mm Hg (80-100); SITE LR
[2017-05-05 07:12] LABS: ANION GAP 12 MEQ/L (2-14); CHLORIDE 103 MEQ/L (99-109); GFR ESTIMATE (CALCULATED) 51 mL/min/; POTASSIUM 3.3 MEQ/L (3.7-5.4); SAMPLE HEMOLYSIS CHECK 0; SAMPLE ICTERIC CHECK 0; SAMPLE LIPEMIA CHECK 0; SODIUM 138 MEQ/L (136-147); UREA NITROGEN (BUN) 19 mg/dL (9-23)
[2017-05-05 07:22] LABS: GLUCOSE 115 mg/dL (70-99)
[2017-05-05 16:49] LABS: MAGNESIUM 1.1 mg/dl (1.3-2.7)
[2017-05-05 17:03] LABS: CREATINE KINASE 544 IU/L (1-294)
[2017-05-05] MEDS ORDERED: DESYREL 150 MG150 MG PO (17:31)
[2017-05-05] MEDS ORDERED: GABAPENTIN600 MG PO (17:32)
[2017-05-05] MEDS ORDERED: SYNTHROID200 MCG PO (17:33)
[2017-05-05] MEDS ORDERED: CARVEDILOL25 MG PO (17:42)
[2017-05-05] MEDS ORDERED: VENLAFAXINE HCL75 M3 PO (17:43)
[2017-05-06 03:58] VITALS: BP 117/80
[2017-05-06 06:41] LABS: EOSINOPHIL (%) 0.7 % (0-5); HEMATOCRIT 34.5 % (38.0-50.0); IMMATURE GRANULOCYTE (%) 0.6 % (0.0-0.7); MCH 26.7 PG (29.0-34.0); MCHC 31.6 G/DL (30.0-36.0); MCV 84.6 FL (86-99); MEAN PLAT.VOLUME 10.3 uM^3 (9.0-12.4); MONOCYTE (%) 6.1 % (3-12); MONOCYTE COUNT 0.3 K/uL (0-0.8); NEUTROPHIL (%) 73.7 % (45-76); PLATELET COUNT 168 K/uL (156-360); RBC DIS.WIDTH-CV 17.3 % (11.8-14.6); RBC DIS.WIDTH-SD 54.3 % (39-53); RED BLOOD COUNT 4.08 M/uL (4.00-5.50); WHITE BLOOD COUNT 5.4 K/uL (4.1-10.2)
[2017-05-06 07:06] LABS: TROP-I INTERPRETATION NEGATIVE; TROPONIN-I 0.13 ng/mL (0.0-0.30)
[2017-05-06 07:09] LABS: ANION GAP 8 MEQ/L (2-14); CHLORIDE 106 MEQ/L (99-109); GFR ESTIMATE (CALCULATED) > 59 mL/min/; GLUCOSE 90 mg/dL (70-99); MAGNESIUM 1.2 mg/dl (1.3-2.7); POTASSIUM 3.9 MEQ/L (3.7-5.4); SAMPLE HEMOLYSIS CHECK 0; SAMPLE ICTERIC CHECK 0; SAMPLE LIPEMIA CHECK 0; SODIUM 140 MEQ/L (136-147); UREA NITROGEN (BUN) 14 mg/dL (9-23)
[2017-05-06 08:40] VITALS: BP 159/90
[2017-05-06 09:38] LABS: BASE EXCESS 3.7 mEq/L (-3 to +3); BICARBONATE 27.7 mEq/L (22-26); CARBOXY HGB 0.3 % (0-5); COMMENTS - BLOOD GASES A+C+; DEVICE ROOM AIR; FI02 21 %; PCO2 39 mm Hg (35-45); PO2 58 mm Hg (80-100); SITE RR; TOTAL RESP RATE 16 resp/min; pH 7.46 (7.35-7.45)
[2017-05-06] MEDS ORDERED: LEVO-T25 MCG PO (12:03)
[2017-05-06 12:31] VITALS: BP 169/103
[2017-05-06] MEDS ORDERED: AUGMENTIN875 MG PO (12:54)
[2017-05-06] MEDS ORDERED: PHOSPHA250 MG PO (12:54)
[2017-05-06] MEDS ORDERED: MAG-OXIDE400 MG PO (12:54)
[2017-05-11 12:00] LABS: CREATININE 2.3 mg/dL (0.6-1.3); POTASSIUM 3.9 mEq/L (3.7-5.4)
== END 2017-05-06 14:46 | disposition home or self-care (01) | DRG 917 ==
LOC: EME → EDBD 20:37 → EME 20:37 → 4EAST 23:26 → EDOF 23:26 → ENRESERV 23:28 → 4EAST 05-05 01:33 → ENRESERV 05-05 10:39 → 4EAST 05-06 14:46
PROVIDERS: Emergency Medicine; Hospitalist; Internal Medicine; Internal Medicine Pulmonary Disease
DX: T40.1X1A Poisoning by heroin, accidental (unintentional), initial encounter (principal); J96.01 Acute respiratory failure with hypoxia; N18.9 Chronic kidney disease, unspecified; I50.22 Chronic systolic (congestive) heart failure; I25.10 Atherosclerotic heart disease of native coronary artery without angina pectoris; F10.10 Alcohol abuse, uncomplicated; J69.0 Pneumonitis due to inhalation of food and vomit; F11.10 Opioid abuse, uncomplicated; I13.0 Hypertensive heart and chronic kidney disease with heart failure and stage 1 through stage 4 chronic kidney disease, or unspecified chronic kidney disease; N17.9 Acute kidney failure, unspecified; E87.2 Acidosis; F32.9 Major depressive disorder, single episode, unspecified; F41.9 Anxiety disorder, unspecified; E83.39 Other disorders of phosphorus metabolism; Z86.711 Personal history of pulmonary embolism; Z95.810 Presence of automatic (implantable) cardiac defibrillator; Z95.5 Presence of coronary angioplasty implant and graft; Z23 Encounter for immunization; Z86.718 Personal history of other venous thrombosis and embolism; Z79.899 Other long term (current) drug therapy; Z86.73 Personal history of transient ischemic attack (TIA), and cerebral infarction without residual deficits; Z68.30 Body mass index [BMI] 30.0-30.9, adult; Z79.01 Long term (current) use of anticoagulants; I42.0 Dilated cardiomyopathy; E03.9 Hypothyroidism, unspecified; E87.6 Hypokalemia; Z96.612 Presence of left artificial shoulder joint; Z96.651 Presence of right artificial knee joint; Z87.442 Personal history of urinary calculi; E16.2 Hypoglycemia, unspecified
CPT/HCPCS: 36600; 70450; 71010; 71275; 80047; 80048; 80053; 81003; 82550; 82803; 82948; 83605; 83735; 84100; 84484; 85025; 85027; 87040; 90686; 93005; 94799; 99281; 99285; G0480; J0295; J0456; J0696; J2310; J7030; J7040; J7050

== ENCOUNTER 2017-08-26 11:16 | Observation (INO) | payer OTHER ==
[~2017-08-26] VITALS: Ht 172.7 cm; Wt 89.5 kg
[~2017-08-26 11:16] MED LIST changes: +CARVEDILOL3.125 MG PO; +DESYREL 150 MG150 MG PO; +GABAPENTIN600 MG PO; +MAG-OXIDE400 MG PO; +PHOSPHA250 MG PO; +TRAMADOL HCL50 MG PO; +VENLAFAXINE HCL75 M3 PO; +XARELTO10 MG PO
[2017-08-26 13:12] LABS: CHLORIDE 98 mEq/L (99-109); POTASSIUM 3.8 mEq/L (3.7-5.4); SODIUM 134 mEq/L (136-147)
[2017-08-26 13:13] LABS: GLUCOSE 149 mg/dL (70-99)
[2017-08-26 13:15] LABS: HEMATOCRIT 49.5 % (38.0-50.0); MCH 29.5 PG (29.0-34.0); MCHC 34.3 G/DL (30.0-36.0); MCV 85.9 FL (86-99); PLATELET COUNT 140 K/uL (156-360); RBC DIS.WIDTH-CV 17.6 % (11.8-14.6); RBC DIS.WIDTH-SD 53.4 % (39-53); RED BLOOD COUNT 5.76 M/uL (4.00-5.50); WHITE BLOOD COUNT 5.7 K/uL (4.1-10.2)
[2017-08-26 13:15] LABS: TROP-I INTERPRETATION NEGATIVE; TROPONIN-I 0.05 ng/mL (0.0-0.30)
[2017-08-26 13:17] LABS: CREATININE 1.3 mg/dL (0.6-1.3); GFR ESTIMATE (CALCULATED) > 59 mL/min/ (58.99-99999)
[2017-08-26 13:18] LABS: UREA NITROGEN (BUN) 15 mg/dL (9-23)
[2017-08-26 14:59] LABS: APPEARANCE CLEAR ((CLEAR)); BILIRUBIN NEGATIVE; BLOOD NEGATIVE; COLOR YELLOW ((YELLOW)); GLUCOSE (STRIP) NEGATIVE; KETONES NEGATIVE; LEUKOCYTES TRACE; NITRITE NEGATIVE; PROTEIN (STRIP) NEGATIVE; SPECIFIC GRAVITY 1.014 (1.000-1.030)
[2017-08-26 15:06] LABS: BACTERIA NONE SEEN /HPF; EPITHELIAL CELLS NONE SEEN /HPF; MUCUS NONE SEEN /LPF; RED BLOOD CELLS 0-5 /HPF (0-5); UCUL ADDED? NO; WHITE BLOOD CELLS 0-5 /HPF (0-5)
[2017-08-26 15:08] LABS: AMPHETAMINE NEGATIVE (500 ng/mL); BARBITURATES NEGATIVE (200 ng/mL); BENZODIAZEPINES NEGATIVE (150 ng/mL); BUPRENORPHINE NEGATIVE (10 ng/mL); COCAINE NEGATIVE (150 ng/mL); METHADONE NEGATIVE (200 ng/mL); METHAMPHETAMINE NEGATIVE (500 ng/mL); OPIATES (MORPHINE) NEGATIVE (100 ng/mL); OXYCODONE NEGATIVE (100 ng/mL); PHENCYCLIDINE NEGATIVE (25 ng/mL); PROPOXYPHENE NEGATIVE (300 ng/mL); THC CANNABINOIDS NEGATIVE (50 ng/mL); TRICYCLIC ANTIDEPRESSANTS NEGATIVE (300 ng/mL)
[2017-08-26] MEDS ORDERED: MAGNESIUM OXID400 MG PO (21:05)
[2017-08-26] MEDS ORDERED: PHOSPHA250 MG PO (21:06)
[2017-08-26] MEDS ORDERED: LISINOPRIL10 MG PO (21:09)
[2017-08-26] MEDS ORDERED: OXYMORPHONE HCL20 MG PO (21:11)
[2017-08-26] MEDS ORDERED: OXYCODONE HCL30 MG PO (21:15)
[2017-08-26 22:28] VITALS: BP 144/100
[2017-08-26 22:44] LABS: TROP-I INTERPRETATION NEGATIVE; TROPONIN-I 0.06 ng/mL (0.0-0.30)
[2017-08-27 03:23] LABS: BASOPHIL (%) 0.6 % (0-1); EOSINOPHIL (%) 0.6 % (0-5); HEMOGLOBIN 15.9 G/DL (12.5-16.6); IMMATURE GRANULOCYTE (%) 0.3 % (0.0-0.7); LYMPHOCYTE (%) 67.1 % (15-42); LYMPHOCYTE COUNT 2.3 K/uL (1.0-2.8); MCH 29.4 PG (29.0-34.0); MCHC 34.6 G/DL (30.0-36.0); MONOCYTE (%) 4.1 % (3-12); MONOCYTE COUNT 0.1 K/uL (0-0.8); NEUTROPHIL (%) 27.3 % (45-76); NEUTROPHIL COUNT 0.9 K/uL (1.8-6.4); PLATELET COUNT 103 K/uL (156-360); RBC DIS.WIDTH-CV 17.2 % (11.8-14.6); RBC DIS.WIDTH-SD 52.6 % (39-53); RED BLOOD COUNT 5.41 M/uL (4.00-5.50); WHITE BLOOD COUNT 3.4 K/uL (4.1-10.2)
[2017-08-27 03:31] LABS: CHLORIDE 98 mEq/L (99-109); POTASSIUM 3.7 mEq/L (3.7-5.4)
[2017-08-27 03:32] LABS: SODIUM 136 mEq/L (136-147)
[2017-08-27 03:33] LABS: GLUCOSE 168 mg/dL (70-99)
[2017-08-27 03:37] LABS: CREATININE 1.1 mg/dL (0.6-1.3); GFR ESTIMATE (CALCULATED) > 59 mL/min/ (58.99-99999)
[2017-08-27 03:38] LABS: UREA NITROGEN (BUN) 16 mg/dL (9-23)
[2017-08-27 03:45] VITALS: BP 107/66
[2017-08-27 03:45] LABS: TROP-I INTERPRETATION NEGATIVE; TROPONIN-I 0.05 ng/mL (0.0-0.30)
[2017-08-27 10:58] VITALS: BP 129/86
[2017-08-27 11:32] VITALS: BP 126/84
[2017-08-27 11:33] VITALS: BP 129/92
[2017-08-27 11:34] VITALS: BP 123/78
[2017-08-27] MEDS ORDERED: LISINOPRIL5 MG PO (13:19)
== END 2017-08-27 14:03 | disposition home or self-care (01) ==
LOC: EME 11:16 → EDOF 21:07 → ENRESERV 21:13 → 5WEST 22:22
PROVIDERS: Emergency Medicine; Hospitalist
DX: R55 Syncope and collapse (principal); M79.605 Pain in left leg; R26.89 Other abnormalities of gait and mobility; I25.5 Ischemic cardiomyopathy; Z95.810 Presence of automatic (implantable) cardiac defibrillator; Z91.19 Patient's noncompliance with other medical treatment and regimen; I49.8 Other specified cardiac arrhythmias; Z86.711 Personal history of pulmonary embolism; Z86.718 Personal history of other venous thrombosis and embolism; F41.9 Anxiety disorder, unspecified; F32.9 Major depressive disorder, single episode, unspecified; F19.10 Other psychoactive substance abuse, uncomplicated; I13.0 Hypertensive heart and chronic kidney disease with heart failure and stage 1 through stage 4 chronic kidney disease, or unspecified chronic kidney disease; I50.22 Chronic systolic (congestive) heart failure; N18.9 Chronic kidney disease, unspecified; E03.9 Hypothyroidism, unspecified; F10.10 Alcohol abuse, uncomplicated; G89.4 Chronic pain syndrome; G40.909 Epilepsy, unspecified, not intractable, without status epilepticus; Z87.442 Personal history of urinary calculi; I25.10 Atherosclerotic heart disease of native coronary artery without angina pectoris; I48.91 Unspecified atrial fibrillation; E78.5 Hyperlipidemia, unspecified; N40.0 Benign prostatic hyperplasia without lower urinary tract symptoms; Z98.890 Other specified postprocedural states; Z88.8 Allergy status to other drugs, medicaments and biological substances; Z82.49 Family history of ischemic heart disease and other diseases of the circulatory system; Z79.01 Long term (current) use of anticoagulants
CPT/HCPCS: 71046; 80048; 80306 90; 81003; 83880; 84484; 85025; 85027; 93005; 99281; 99285; G0378; G0480